=== PATIENT | female | born 1965 | race Native Hawaiian/Other Pacific Islander ===

== ENCOUNTER 2022-05-05 14:14 | Emergency (ER) | payer OTHER ==
[~2022-05-05] VITALS: Ht 160 cm; Wt 98.4 kg
[2022-05-05 14:34] VITALS: BP 98/68; TEMP 98.1
[2022-05-05 15:01] LABS: PLATELET COUNT 179 K/uL (152-353)
[2022-05-05 15:03] LABS: POTASSIUM 4.4 mmol/L (3.6-5.2)
[2022-05-05] MEDS ORDERED: VITAMIN DE1000 MCG/M SC (16:29)
[2022-05-05] MEDS ORDERED: VITAMIN D50000 UNIT PO (16:31)
[2022-05-05] MEDS ORDERED: [UNRECOGNIZED DRUG - OTHER] PO (16:31)
[2022-05-05] MEDS ORDERED: ESCI10TA PO (16:32)
[2022-05-05] MEDS ORDERED: EZET10TA13 PO (16:33)
[2022-05-05] MEDS ORDERED: LOSA50TA PO (16:34)
[2022-05-05] MEDS ORDERED: FURO40TA93 PO (16:34)
[2022-05-05] MEDS ORDERED: MELATONIN5 M2 PO (16:36)
[2022-05-05] MEDS ORDERED: ESCI20TA PO (16:36)
[2022-05-05] MEDS ORDERED: MONT10TA PO (16:37)
[2022-05-05] MEDS ORDERED: OMEP40CA PO (16:37)
[2022-05-05] MEDS ORDERED: MYRBETRIQ25 MG PO (16:37)
[2022-05-05] MEDS ORDERED: ROSUVASTATIN CA40 MG PO (16:38)
[2022-05-05] MEDS ORDERED: KLOR-CON M2020 MEQ PO (16:38)
[2022-05-05] MEDS ORDERED: ADVAIR HF2 INH (16:39)
[2022-05-05] MEDS ORDERED: AZEL137S NAS (16:40)
[2022-05-05] MEDS ORDERED: DIVA125C PO (16:41)
[2022-05-05] MEDS ORDERED: IRON325 MG PO (16:42)
[2022-05-05] MEDS ORDERED: GABA300C2 PO (16:42)
[2022-05-05] MEDS ORDERED: METF500T PO (16:43)
[2022-05-05] MEDS ORDERED: IPRATROPIUM/ INH (16:44)
[2022-05-05] MEDS ORDERED: HYDR10TA51 PO (16:45)
[2022-05-05] MEDS ORDERED: HUMULIN R100 UNIT/M SC (16:46)
[2022-05-05] MEDS ORDERED: TYLENOL325 MG PO (16:47)
[2022-05-05] MEDS ORDERED: BAYER ASPIRIN E81 MG PO (16:48)
== END 2022-05-05 16:00 | disposition still patient (30) ==
LOC: ED 14:14
PROVIDERS: Internal Medicine
DX: U07.1 COVID-19 (principal); R46.89 Other symptoms and signs involving appearance and behavior; Z04.6 Encounter for general psychiatric examination, requested by authority
CPT/HCPCS: 80053; 81002; 85027; 87635; 93005; 99283; J1100; J2060; U0003